=== PATIENT | female | born 1950 | race Caucasian/White ===

== ENCOUNTER → 2016-09-26 | Outpatient (CLI) | payer MEDICARE, OTHER ==
[~2016-09-26] VITALS: Ht 172.7 cm; Wt 158.5 kg
[~2016-09-26] MED LIST: ALEVE 220MG220 MG PO; ASPIRIN E.C. 8181 MG PO; CLARITIN 1010 MG/TAB PO; CONTRAVE1 TER PO; FLONASE NASAL S16 GM NS; GLUCOPHAGE1000 MG PO; GLUCOPHAGE500 MG/TAB PO; LIPITOR 10MG10 MG PO; MASON NATURAL1000 MG PO; MAXALT10 MG PO; NEURONTIN400 MG/CAP PO; PRINZIDE 12.5 M1 TA1 PO; PROZAC40 MG PO; REQUIP 0.5MG0.5 MG PO; TENORMIN 5050 MG/TAB PO; VITAMIN D 50,1.25 MG PO; VITAMIN D32000 I1 PO; WELLBUTRIN SR150 M1 PO
[2016-09-26 10:34] VITALS: BP 154/84; PULSE 84
[2016-09-26 12:12] VITALS: BP 154/84; PULSE 84
[2016-09-26 12:49] VITALS: BP 154/84; PULSE 84
== END ==
LOC: LIGHT 10:10
DX: M54.5 Low back pain (principal); F32.89 Other specified depressive episodes; E11.9 Type 2 diabetes mellitus without complications; F50.89 Other specified eating disorder; Z68.43 Body mass index [BMI] 50.0-59.9, adult

== ENCOUNTER → 2016-10-08 | Outpatient (CLI) | payer MEDICARE, OTHER ==
[~2016-10-08] VITALS: Ht 172.7 cm; Wt 155.8 kg
[2016-10-08 15:57] VITALS: BP 142/88; PULSE 72
== END ==
LOC: LIGHT 10:22
DX: Z53.9 Procedure and treatment not carried out, unspecified reason (principal)

== ENCOUNTER → 2016-10-25 | Outpatient (CLI) | payer MEDICARE, OTHER ==
[~2016-10-25] VITALS: Ht 172.7 cm; Wt 158.3 kg
[2016-10-25 10:30] VITALS: BP 180/100; PULSE 88
== END ==
LOC: LIGHT 10:30
DX: M54.5 Low back pain (principal); F32.89 Other specified depressive episodes; E11.9 Type 2 diabetes mellitus without complications; F50.81 Binge eating disorder; Z90.49 Acquired absence of other specified parts of digestive tract

== ENCOUNTER → 2016-11-22 | Outpatient (CLI) | payer MEDICARE, OTHER ==
[~2016-11-22] VITALS: Ht 172.7 cm; Wt 156.5 kg
[2016-11-22 11:16] VITALS: BP 134/82; PULSE 68
== END ==
LOC: LIGHT 09:45
DX: M54.5 Low back pain (principal); F32.89 Other specified depressive episodes; E11.9 Type 2 diabetes mellitus without complications; F50.81 Binge eating disorder

== ENCOUNTER → 2016-11-28 | Outpatient (CLI) | payer MEDICARE, OTHER | LOC: LIGHT 09:59 | DX: Z01.818 Encounter for other preprocedural examination (principal) ==

== ENCOUNTER → 2017-01-31 | Outpatient (CLI) | payer MEDICARE, OTHER ==
[~2017-01-31] VITALS: Ht 172.7 cm; Wt 160.6 kg
[2017-01-31 10:39] VITALS: BP 124/84; PULSE 84
== END ==
LOC: LIGHT 12-27 12:51
DX: M54.5 Low back pain (principal); F32.89 Other specified depressive episodes; E11.9 Type 2 diabetes mellitus without complications; F50.81 Binge eating disorder; Z68.43 Body mass index [BMI] 50.0-59.9, adult; Z71.3 Dietary counseling and surveillance

== ENCOUNTER → 2017-02-12 | Outpatient (RCR) | payer MEDICARE, OTHER | END | disposition home or self-care (01) | LOC: WSPT | DX: M89.8X6 Other specified disorders of bone, lower leg (principal) | CPT/HCPCS: G8978-GP; G8979-GP ==

== ENCOUNTER 2017-03-08 12:45 | Outpatient (RCR) | payer MEDICARE, OTHER | END 2017-04-05 16:41 | LOC: WSPT 12:45 | DX: M76.822 Posterior tibial tendinitis, left leg (principal) ==

== ENCOUNTER → 2017-03-14 | Outpatient (CLI) | payer MEDICARE, OTHER ==
[~2017-03-14] VITALS: Ht 176.5 cm; Wt 158.8 kg
[2017-03-14 10:55] VITALS: BP 150/98; PULSE 72
== END ==
LOC: LIGHT 10:40
DX: M54.5 Low back pain (principal); F32.89 Other specified depressive episodes; E11.9 Type 2 diabetes mellitus without complications; F50.81 Binge eating disorder; Z68.43 Body mass index [BMI] 50.0-59.9, adult; Z71.3 Dietary counseling and surveillance

== ENCOUNTER → 2017-04-18 | Outpatient (CLI) | payer MEDICARE, OTHER ==
[~2017-04-18] VITALS: Ht 176.5 cm; Wt 156.0 kg
[2017-04-18 10:15] VITALS: BP 130/70; PULSE 84
== END ==
LOC: LIGHT 10:08
DX: M54.5 Low back pain (principal); F32.89 Other specified depressive episodes; E11.9 Type 2 diabetes mellitus without complications; F50.81 Binge eating disorder; Z68.43 Body mass index [BMI] 50.0-59.9, adult; Z71.3 Dietary counseling and surveillance

== ENCOUNTER → 2018-08-19 | Outpatient (CLI) | payer MEDICARE, OTHER | LOC: COL.PUL 09:53 | DX: R06.02 Shortness of breath (principal) ==